=== PATIENT | female | born 1950 | race Caucasian/White ===

== ENCOUNTER 2021-04-11 08:22 | Day surgery (SDC) | payer MEDICARE, BC ==
[2021-04-11] MEDS: Polymyxin B/Trimethoprim 10 ML Bottle EYELF SCH ×4 (08:52→10:18)
[2021-04-11] MEDS: Brimonidine 0.2% Ophth Soln 5 ML Bottle EYELF SCH ×4 (08:56→10:18)
[2021-04-11] MEDS: Phenylephrine 2.5% Ophth Soln 2 ML Bot EYELF SCH ×6 (09:00→09:56)
[2021-04-11] MEDS: Tropicamide 1% Ophth Soln 15 ML Bottle EYELF SCH ×4 (09:05→09:29)
[2021-04-11] MEDS: Tetracaine HCl/PF 0.5% 4 ML Bottle EYEBOTH SCH ×5 (09:38→10:02)
[2021-04-11] MEDS: Cefuroxime 10 MG/ML SYRINGE EYELF SCH ×2 (09:50→10:17)
[2021-04-11] MEDS: Lidocaine 1% PF 2 ML SDV INJECT SCH ×2 (09:50→10:03)
[2021-04-11] MEDS: Pilocarpine 4% Ophth Soln 15 ML Bot EYELF SCH ×2 (09:51→10:18)
== END 2021-04-11 10:28 | disposition home or self-care (01) ==
LOC: JD.SDS 08:22
PROVIDERS: ATTEND Ophthalmology
DX: H25.813 Combined forms of age-related cataract, bilateral (principal); H17.89 Other corneal scars and opacities; B00.52 Herpesviral keratitis; H16.103 Unspecified superficial keratitis, bilateral; H16.223 Keratoconjunctivitis sicca, not specified as Sjogren's, bilateral; E78.00 Pure hypercholesterolemia, unspecified; I10 Essential (primary) hypertension; Z98.890 Other specified postprocedural states; Z87.891 Personal history of nicotine dependence; Z79.82 Long term (current) use of aspirin; Z79.899 Other long term (current) drug therapy
CPT/HCPCS: 66984; J0697; C1780

== ENCOUNTER 2021-05-09 10:33 | Day surgery (SDC) | payer MEDICARE, BC ==
[2021-05-09] MEDS: Polymyxin B/Trimethoprim 10 ML Bottle EYERT SCH ×3 (10:30→12:05)
[~2021-05-09 10:33] MED LIST: Cefuroxime 10 MG/ML SYRINGE EYERT SCH; Lidocaine 1% PF 2 ML SDV INJECT SCH; Pilocarpine 4% Ophth Soln 15 ML Bot EYERT SCH
[2021-05-09] MEDS: Brimonidine 0.2% Ophth Soln 5 ML Bottle EYERT SCH ×2 (10:35→11:18)
[2021-05-09] MEDS: Phenylephrine 2.5% Ophth Soln 2 ML Bot EYERT SCH ×5 (10:39→11:44)
[2021-05-09] MEDS: Tropicamide 1% Ophth Soln 15 ML Bottle EYERT SCH ×4 (10:44→11:28)
[2021-05-09] MEDS: Tetracaine HCl/PF 0.5% 4 ML Bottle EYEBOTH SCH ×4 (11:33→11:45)
[2021-05-13] MEDS: Brimonidine 0.2% Ophth Soln 5 ML Bottle EYERT SCH (12:05)
== END 2021-05-09 12:13 | disposition home or self-care (01) ==
LOC: JD.SDS 10:33
PROVIDERS: ATTEND Ophthalmology
DX: H25.811 Combined forms of age-related cataract, right eye (principal); H17.89 Other corneal scars and opacities; H16.103 Unspecified superficial keratitis, bilateral; H16.223 Keratoconjunctivitis sicca, not specified as Sjogren's, bilateral; H52.31 Anisometropia; E78.00 Pure hypercholesterolemia, unspecified; I10 Essential (primary) hypertension; Z98.890 Other specified postprocedural states; Z87.891 Personal history of nicotine dependence; Z79.82 Long term (current) use of aspirin; Z79.899 Other long term (current) drug therapy
CPT/HCPCS: 66984; C1780; J0697